=== PATIENT | male | born 1945 | race Caucasian/White ===

== ENCOUNTER 2017-05-06 09:25 | Emergency (ER) | payer OTHER, MEDICARE ==
[2017-05-06 09:47] VITALS: BP 133/55
--- NOTE | 2017-05-06 10:15 | ER Document Report ---
HPI - HPI Pain Level: Denies Notes: Patient is a 72-year-old male who presents the ED for removal of stitches status post laceration repair about 12 days ago. Patient states he has not had any difficulties with the sutures and his wound has healed without any complications. Patient has not noticed any redness, purulent discharge, abscess , red streaks, or discharge. No other concerns or complaints. Denies any fever. - ROS Notes: REVIEW OF SYSTEMS: CONSTITUTIONAL : Denies fever, chills, or sweats. Denies recent illness. EENT: Denies eye, ear, throat, or mouth pain or symptoms. Denies nasal or sinus congestion or discharge. Denies throat, tongue, or mouth swelling or difficulty swallowing. CARDIOVASCULAR: Denies chest pain. Denies palpitations or racing or irregular heart beat. Denies ankle edema. RESPIRATORY: Denies cough, cold, or chest congestion. Denies shortness of breath, difficulty breathing, or wheezing. GASTROINTESTINAL: Denies abdominal pain or distention. Denies nausea, vomiting , or diarrhea. Denies blood in vomitus, stools, or per rectum. Denies black, tarry stools. Denies constipation. GENITOURINARY: Denies difficulty urinating, painful urination, burning, frequency, blood in urine, or discharge. MUSCULOSKELETAL: Denies back or neck pain or stiffness. Denies joint pain or swelling. SKIN: see hpi NEUROLOGICAL: Denies confusion or altered mental status. Denies passing out or loss of consciousness. Denies dizziness or lightheadedness. Denies headache. Denies weakness or paralysis or loss of use of either side. Denies problems with gait or speech. Denies sensory loss, numbness, or tingling. ALL OTHER SYSTEMS REVIEWED AND NEGATIVE. Dictation was performed using [employer] recognition software - DERM Skin Color: Normal Past Medical History - Social History Smoking Status: Current Every Day Smoker Frequency of alcohol use: Rare Family History: Reviewed & Not Pertinent Patient has suicidal ideation: No Patient has homicidal ideation: No Endocrine Medical History: Reports: Hx Diabetes Mellitus Type 2 Renal/ Medical History: Denies: Hx Peritoneal Dialysis - Immunizations Hx Diphtheria, Pertussis, Tetanus Vaccination: Yes Vertical Provider Document - CONSTITUTIONAL Agree With Documented VS: Yes Notes: PHYSICAL EXAMINATION: GENERAL: Well-appearing, well-nourished and in no acute distress. LUNGS: Breath sounds clear to auscultation bilaterally and equal. No wheezes rales or rhonchi. HEART: Regular rate and rhythm without murmurs, rubs, gallops. ABDOMEN: Soft, nontender, nondistended abdomen. No guarding, no rebound. No masses appreciated. Normal bowel sounds present. No CVA tenderness bilaterally. Musculoskeletal: Lt hand: FROM to passive/active. Strength 5+/5. PSYCH: Normal mood, normal affect. SKIN: [address] to left hand. No wound dehiscense, erythema, warmth, abscess, streaks, or discharge. Non-tender. - INFECTION CONTROL TRAVEL OUTSIDE OF THE [place] IN LAST 30 DAYS: No - RESPIRATORY O2 Sat by Pulse Oximetry: 98 Course - Re-evaluation Re-evalutation: 05/06/17 10:23 Patient is an afebrile, well-hydrated, 72-year-old male since the ED for suture removal to the left hand. Sutures were removed successfully without any complications. There is no evidence of wound dehiscence or infection at this time. Conservative measures for symptoms. Recheck with your PCM later this week if needed. Return to the ED with any worsening/concerning symptoms otherwise as reviewed discharge. Patient is in agreement. - Vital Signs Vital signs: Temp Pulse Resp BP Pulse Ox 97.9 F 72 18 133/55 H 98 05/06/17 09:45 05/06/17 09:45 05/06/17 09:45 05/06/17 09:45 05/06/17 09:45 Discharge - Discharge Clinical Impression: Visit for suture removal Condition: Stable Disposition: HOME, SELF-CARE Instructions: Suture Removal Additional Instructions: Keep the skin clean Wash with soap and water Monitor for any signs of infection Recheck with your PCM in 3-5 days Return to the ED with any worsening symptoms and/or development of fever, headache, chest pain, palpitations, syncope, shortness of breath, trouble breathing, abdominal pain, n/v/d, muscle weakness/paralysis, numbness/tingling, abscess, wound dehiscence, red streaks, purulent discharge, or other worsening symptoms that are concerning to you. Forms: Elevated Blood Pressure Referrals: [facility] [Provider Group] - Follow up as needed [facility] [Provider Group] - Follow up as needed
== END 2017-05-06 10:28 | disposition home or self-care (01) ==
LOC: ER 09:25
DX: S61.412D Laceration without foreign body of left hand, subsequent encounter (principal); X58.XXXD Exposure to other specified factors, subsequent encounter

== ENCOUNTER 2019-12-02 23:08 | Emergency (ER) | payer OTHER, MEDICARE ==
[2019-12-03] MEDS ORDERED: ONDANSETRON 4 MG TAB.RAPDIS PO ONE (00:15)
[2019-12-03] MEDS ORDERED: OXYCODONE-ACETAMINOPHEN 5-325 MG TABLET PO ONE (00:15)
--- NOTE | 2019-12-03 00:18 | ER Document Report ---
ED General - General Chief Complaint: Arm Injury Stated Complaint: ARM DEFORMITY Primary Care Provider: KIM DENT MD [Primary Care Provider] - Follow up as needed Notes: Patient is a 74-year-old white male with past medical history of leukemia in remission, diabetes and chronic left sciatica who presents to the emergency department the chief complaint of left arm pain after a fall at 10:30 PM. The patient reports he was walking up some steps, has sciatica of the left leg which caused him to trip falling forward landing on the left arm. Per EMS obvious deformity. He was placed in a immobilizing splint by EMS. He denies any numb ness, tingling or weakness. Admits to pain in the left upper arm. No head injury or loss of consciousness. TRAVEL OUTSIDE OF THE [place] IN LAST 30 DAYS: No - Related Data Allergies/Adverse Reactions: No Known Allergies Allergy (Verified 05/06/17 10:07) Past Medical History - Social History Smoking Status: Unknown if Ever Smoked Family History: Reviewed & Not Pertinent Endocrine Medical History: Reports: Hx Diabetes Mellitus Type 2 Renal/ Medical History: Denies: Hx Peritoneal Dialysis - Immunizations Hx Diphtheria, Pertussis, Tetanus Vaccination: Yes Review of Systems - Review of Systems Musculoskeletal: Other - Arm pain Skin: No symptoms reported Neurological/Psychological: No symptoms reported Physical Exam - Vital signs Vitals: Temp 98.2 F 12/02/19 23:08 - General General appearance: Appears well, Alert - Respiratory Respiratory status: No respiratory distress Chest status: Nontender Breath sounds: Normal Chest palpation: Normal - Cardiovascular Rhythm: Regular Heart sounds: Normal auscultation - Extremities General upper extremity: Other - Left arm held in full elbow extension by EMS splint. There is ecchymosis to the lateral left humeral region and lateral left elbow and forearm. Tenderness over the mid left upper arm. The left forearm tissues are compressible. There is 2+ radial on the left. Foreign [employer] T[employer] Trader strength is 3 out of 5 on the left as compared with the right. - Neurological Neuro grossly intact: Yes Cognition: Normal Orientation: AAOx4 - Psychological Associated symptoms: Normal affect, Normal mood - Skin Skin Temperature: Warm Skin Moisture: Dry Skin Color: Other - Normal except area described above Course - Re-evaluation Re-evalutation: 12/03/19 00:[address] Coleman who also reviewed the x-ray and recommended orthopedic consult. I called and spoke with Dr. Henry who agreed that the area of fracture does display a suspicious bony demineralization possibly revealing an underlying pathologic fracture. The patient has a close relationship with an oncologist that he sees from time to time given his history of leukemia A, Dr. Herlinda Apple 12/03/19 01:[address] Apple first thing tomorrow morning for outpatient investigation and work-up. Dr. Henry advised to be happy to see the patient in the event there is any prolonged nature to the patient's ability to see the oncologist. He will be given a short course of pain medications as well as both Dr. Henry's information and he has Dr. Apple. He requested his nightly dose of Lantus 25 subcu. He will be placed in a posterior long-arm splint and sling per Ortho. 12/03/19 02:30 Arm neurovascularly intact status post as evaluated by me. Discussed with patient signs and symptoms of possible compression syndrome distal to the affected area. Verbalized understood and agreed. Counseled him regarding the importance of outpatient follow-up tomorrow morning with the oncologist and with Ortho as needed. Advised to return here any ER immediately with any new, persistent or worsening symptoms. He verbalized understood and agreed. - Vital Signs Vital signs: Temp Pulse Resp BP Pulse Ox 98.2 F 12/02/19 23:08 - Laboratory Laboratory results interpreted by me: 12/03/19 01:28 POC Glucose 211 H Discharge - Discharge Clinical Impression: Humeral fracture Qualifiers: Encounter type: initial encounter Humerus Location: distal Fracture type: closed Fracture morphology: unspecified fracture morphology Laterality: left Qualified Code(s): S42.402A - Unspecified fracture of lower end of left humerus, initial encounter for closed fracture Pathologic fracture Qualifiers: Pathology associated with fracture: unspecified disease Site of pathological fracture: humerus Encounter type: initial encounter Laterality: left Qualified Code(s): M84.422A - Pathological fracture, left humerus, initial encounter for fracture Condition: Stable Disposition: HOME, SELF-CARE Instructions: Fracture Proximal Humerus Additional Instructions: Please call your oncologist first thing in the morning, Dr. Apple for urgent outpatient evaluation of possible pathologic fracture to the left humerus given the changes to the bone seen on x-ray. If there is any prolongation of time between now and evaluation by your oncologist please call Dr. Henry, the orthopedist that also evaluated your x-ray and was involved in your care here today. Please return here or any ER immediately with any new, persistent or worsening symptoms. Prescriptions: Hydrocodone/Acetaminophen [Butler 10-325 Tablet] 1 each PO Q6 PRN #12 tablet PRN Reason: Ondansetron [Zofran Odt 4 mg Tablet] 4 mg PO Q8 PRN #15 tab.rapdis PRN Reason: Referrals: KIM DENT MD [Primary Care Provider] - Follow up as needed MARLENE HENRY JR, DO [ACTIVE PROVISIONAL STAFF] - Follow up as needed
--- NOTE | 2019-12-03 00:26 | RADIOLOGY REPORT (SQ) ---
EXAM DESCRIPTION: XR FOREARM 2 VIEWS COMPLETED DATE/TME: 12/02/2019 23:31 CLINICAL HISTORY: 74 years, Male, fall with injury to left arm COMPARISON: None. NUMBER OF VIEWS: 2 TECHNIQUE: 2 views of the left forearm LIMITATIONS: None. FINDINGS: Partial visualization of a displaced fracture of the distal humeral diaphysis. Artifact overlies the forearm. Questionable nondisplaced ulnar styloid fracture. Soft tissue swelling. The elbow joint appears grossly intact. IMPRESSION: Partially visualized distal humeral fracture deformity. Questionable nondisplaced ulnar styloid fracture. Soft tissue swelling.. copyright 2010 [employer]- All Rights Reserved
--- NOTE | 2019-12-03 00:30 | RADIOLOGY REPORT (SQ) ---
EXAM DESCRIPTION: XR HUMERUS COMPLETED DATE/TME: 12/02/2019 23:31 CLINICAL HISTORY: 74 years, Male, fall with injury to left arm COMPARISON: None. NUMBER OF VIEWS: 2 TECHNIQUE: 2 view left humerus LIMITATIONS: None. FINDINGS: There is a displaced fracture of the distal humeral diaphysis. Lateral angulation of the distal fracture fragment. Comminuted appearance to the fracture. There is an underlying, moth-eaten appearance to the humerus at the fracture site, and pathologic fracture is considered. Correlate with any cancer history. There is underlying osteopenia. The shoulder and elbow joints appear intact IMPRESSION: Comminuted displaced and angulated distal humeral diaphyseal fracture. Moth-eaten appearance of the underlying humerus may reflect pathologic fracture deformity. copyright 2010 [email or web address]- All Rights Reserved
[2019-12-03] MEDS ORDERED: INSULIN GLARGINE,HUM.REC.ANLOG 1,000 UNIT/10 ML VIAL SUBCUT ONE (01:14)
[2019-12-03 02:48] VITALS: BP 124/48
== END 2019-12-03 03:15 | disposition home or self-care (01) ==
LOC: ER 23:08
PROC: 2W39X1Z Immobilization of Left Upper Extremity using Splint (ICD-10-PCS; principal; 2019-12-02)
DX: S42.402A Unspecified fracture of lower end of left humerus, initial encounter for closed fracture (principal); M79.602 Pain in left arm; W10.9XXA Fall (on) (from) unspecified stairs and steps, initial encounter; E11.9 Type 2 diabetes mellitus without complications; C95.91 Leukemia, unspecified, in remission
CPT/HCPCS: 99283; 82962; 73090; 73060; 29105; J1815; S0119

== ENCOUNTER 2019-12-15 10:45 | Emergency (ER) | payer OTHER, MEDICARE ==
[2019-12-15 10:53] VITALS: BP 130/58
--- NOTE | 2019-12-15 11:15 | ER Document Report ---
ED Medical Screen (RME) - General Chief Complaint: Weakness Stated Complaint: WEAKNESS, CAN'T STAND Time Seen by Provider: 12/15/19 11:14 Primary Care Provider: KIM DENT MD [Primary Care Provider] - Follow up as needed Notes: Patient was referred here from Dr. Wong's office. He has bone metastasis he fell couple weeks ago fracturing his left shoulder he does have an oncology follow-up with [facility] have progressive weakness and ability to stand take some steps pivot family is having a very difficult time taking care of him patient is really not want much performed however he did agree to at least get a urine obtained to be sure that we do not have some infection brewing. TRAVEL OUTSIDE OF THE [place] IN LAST 30 DAYS: No - Related Data Allergies/Adverse Reactions: No Known Allergies Allergy (Verified 05/06/17 10:07) Past Medical History Endocrine Medical History: Reports: Hx Diabetes Mellitus Type 2 Renal/ Medical History: Denies: Hx Peritoneal Dialysis - Immunizations Hx Diphtheria, Pertussis, Tetanus Vaccination: Yes Physical Exam - Vital signs Vitals: Temp Pulse Resp BP Pulse Ox 98.6 F 115 H 18 130/58 H 100 12/15/19 10:52 12/15/19 10:52 12/15/19 10:52 12/15/19 10:52 12/15/19 10:52 Course - Vital Signs Vital signs: Temp Pulse Resp BP Pulse Ox 98.6 F 115 H 18 130/58 H 100 12/15/19 10:52 12/15/19 10:52 12/15/19 10:52 12/15/19 10:52 12/15/19 10:52 Doctor's Discharge - Discharge Referrals: KIM DENT MD [Primary Care Provider] - Follow up as needed
[2019-12-15 12:42] LABS: HEMATOCRIT 33.2 % (37.9-51.0); HEMOGLOBIN 11.3 g/dL (13.5-17.0); MEAN CORPUSCULAR HEMOGLOBIN 33.5 pg (27.0-33.4); MEAN CORPUSCULAR HGB CONC 34.1 g/dL (32.0-36.0); MEAN CORPUSCULAR VOLUME 98 fl (80-97); PLATELET COUNT 487 10^3/uL (150-450); RED BLOOD COUNT 3.38 10^6/uL (4.35-5.55); RED CELL DISTRIBUTION WIDTH 14.7 % (11.5-14.0)
[2019-12-15 12:48] LABS: APPEARANCE,URINE CLEAR; BILIRUBIN,URINE NEGATIVE (NEGATIVE); COLOR,URINE YELLOW; GLUCOSE, URINE NEGATIVE (NEGATIVE); KETONES,URINE TRACE mg/dL (NEGATIVE); LEUKOCYTE ESTERASE,URINE NEGATIVE (NEGATIVE); NITRITE,URINE NEGATIVE (NEGATIVE); PROTEIN,URINE NEGATIVE (NEGATIVE); URIC ACID CRYSTALS,URINE RARE /HPF; URINE SPECIFIC GRAVITY 1.015; UROBILINOGEN,URINE NEGATIVE mg/dL (<2.0)
[2019-12-15 13:03] LABS: ALBUMIN 3.6 g/dL (3.5-5.0); ALKALINE PHOSPHATASE 117 U/L (38-126); ANION GAP 7 (5-19); ASPARTATE AMINO TRANSFERASE 37 U/L (17-59); BILIRUBIN,TOTAL 0.5 mg/dL (0.2-1.3); BLOOD UREA NITROGEN 47 mg/dL (7-20); CALCIUM 11.1 mg/dL (8.4-10.2); CARBON DIOXIDE 27 mmol/L (22-30); CHLORIDE 99 mmol/L (98-107); GLUCOSE 149 mg/dL (75-110); POTASSIUM 4.5 mmol/L (3.6-5.0); TOTAL PROTEIN 6.5 g/dL (6.3-8.2)
[2019-12-15 13:10] LABS: WHITE BLOOD COUNT 34.1 10^3/uL (4.0-10.5)
[2019-12-15 13:12] LABS: ABSOLUTE LYMPHOCYTES# (MANUAL) 9.9 10^3/uL (0.5-4.7); ABSOLUTE MONOCYTES # (MANUAL) 1.7 10^3/uL (0.1-1.4); ANISOCYTOSIS SLIGHT; BAND NEUTROPHILS % (MANUAL) 1 % (3-5); BASOPHILS % (MANUAL) 0 % (0-2); EOSINOPHILS % (MANUAL) 0 % (0-6); LYMPHOCYTES % (MANUAL) 29 % (13-45); MONOCYTES % (MANUAL) 5 % (3-13); PLATELET COMMENT INCREASED; SEGMENTED NEUTROPHILS % (MAN) 65 % (42-78); TOTAL CELLS COUNTED 100
--- NOTE | 2019-12-15 14:28 | ER Document Report ---
ED General - General Chief Complaint: General Weakness Stated Complaint: WEAKNESS, CAN'T STAND Time Seen by Provider: 12/15/19 11:14 Primary Care Provider: KIM DENT MD [Primary Care Provider] - Follow up as needed Mode of Arrival: Wheelchair Information source: Patient, Relative TRAVEL OUTSIDE OF THE [place] IN LAST 30 DAYS: No - HPI Onset/Duration: Gradual Quality of pain: Achy Severity: Moderate Pain Level: 3 Associated symptoms: Weakness, Other - chronic back pain, new pain in left broken shoulder Exacerbated by: Standing, Movement Relieved by: Remaining still Similar symptoms previously: No Recently seen / treated by doctor: No Notes: 74 year old male with a history of CLL (followed at [facility] for Oncology Care), Diabetes, Chronic Back Pain who recently fell and broke his left humerus (due to a pathologic fracture) here in the ER for generalized weakness. The patient followed up with Dr. Henry of Orthopedics and he has since referred to the patient to [facility] Orthopedic Oncology (patient has an appointment this Saturday). The patient denies any recent fevers, chills, sweats, urinary symptoms, cough, congestion, sore throat runny nose. The patient has become very weak over the last several days and his pain is also limiting his mobility. The patient's is with him and she tells me she is having trouble caring for the patient alone at this point. - Related Data Allergies/Adverse Reactions: No Known Allergies Allergy (Verified 05/06/17 10:07) Past Medical History - General Information source: Patient, Relative - Social History Smoking Status: Current Every Day Smoker Frequency of alcohol use: Occasional Drug Abuse: None Lives with: Spouse/Significant other Family History: Reviewed & Not Pertinent Patient has suicidal ideation: No Patient has homicidal ideation: No Endocrine Medical History: Reports: Hx Diabetes Mellitus Type 2 Renal/ Medical History: Denies: Hx Peritoneal Dialysis Malignancy Medical History: Reports Hx Leukemia - Immunizations Hx Diphtheria, Pertussis, Tetanus Vaccination: Yes Review of Systems - Review of Systems Constitutional: Weakness EENT: No symptoms reported Cardiovascular: No symptoms reported Respiratory: No symptoms reported Gastrointestinal: No symptoms reported Genitourinary: No symptoms reported Male Genitourinary: No symptoms reported Musculoskeletal: Back pain - with sciatica, Other - left upper arm pain from known fracture, chronic leg pains Skin: No symptoms reported Hematologic/Lymphatic: No symptoms reported Neurological/Psychological: No symptoms reported -: Yes All other systems reviewed and negative Physical Exam - Vital signs Vitals: Temp Pulse Resp BP Pulse Ox 98.6 F 115 H 18 130/58 H 100 12/15/19 10:52 12/15/19 10:52 12/15/19 10:52 12/15/19 10:52 12/15/19 10:52 - Notes Notes: GENERAL: Appears chronically ill, Well-appearing, well-nourished and in no acute distress. HEAD: Atraumatic, normocephalic. EYES: Pupils equal round and reactive to light, extraocular movements intact, sclera anicteric, conjunctiva are normal. ENT: External ears normal, nares patent, oropharynx clear without exudates. Moist mucous membranes. NECK: Normal range of motion, supple without lymphadenopathy or JVD. LUNGS: Breath sounds clear to auscultation bilaterally and equal. No wheezes rales or rhonchi. HEART: Regular rate and rhythm without murmurs, rubs or gallops. ABDOMEN: Soft, nontender, normoactive bowel sounds. No guarding, no rebound. No masses appreciated. EXTREMITIES: Normal range of motion, no pitting or edema. No clubbing or cyanosis. NEUROLOGICAL: Cranial nerves II through XII grossly intact. Normal speech, normal gait. PSYCH: Normal mood, normal affect. SKIN: Warm, Dry, normal turgor, no rashes or lesions noted. Course - Re-evaluation Re-evalutation: 12/15/19 15:21 The patient is here in the ER for generalized weakness. He is known CLL which is being managed at [facility]. I called [facility] to go over his lab work from today (patient's WBC is 34 and his BUN is 47) and the Oncology Fellow long haul truck driver said his WBC was 29 and his BUN was 13 back in August). Oncology at [facility] has no specific recommendations regarding his CLL at this time since he is stage 0 and simply being observed. Plan will therefore be to hydrate the patient (he seems slightly dehydrated clinically and based on his labs), treat his pain from his humerus fracture (IV morphine), and have case management get involved since the patient's is having trouble caring for him. Patient will still need to follow up with [facility] Orthopedic Oncology as scheduled this Saturday. - Vital Signs Vital signs: Temp Pulse Resp BP Pulse Ox 98.6 F 115 H 18 130/58 H 100 12/15/19 10:52 12/15/19 10:52 12/15/19 10:52 12/15/19 10:52 12/15/19 10:52 - Laboratory Result Diagrams: 12/15/19 11:25 12/15/19 11:25 Laboratory results interpreted by me: 12/15/19 12/15/19 12/15/19 11:25 11:25 11:25 WBC 34.1 H* RBC 3.38 L Hgb 11.3 L Hct 33.2 L MCV 98 H MCH 33.5 H RDW 14.7 H Plt Count 487 H Band Neutrophils % 1 L Abs Neuts (Manual) 22.5 H Abs Lymphs (Manual) 9.9 H Abs Monocytes (Manual) 1.7 H Sodium 133.3 L BUN 47 H Glucose 149 H Calcium 11.1 H Urine Ketones TRACE H Discharge - Discharge Clinical Impression: Dehydration Condition: Stable Disposition: HOME, SELF-CARE Instructions: Dehydration ([facility]), Fracture Proximal Humerus Additional Instructions: Follow up with [facility] Orthopedics as scheduled this Saturday. Also follow up with your primary care doctor and your Oncologist. Work with Case Management and your primary care doctor to establish home health services. Use your previously prescribed pain medications along with tylenol and motrin for pain. Referrals: KIM DENT MD [Primary Care Provider] - Follow up as needed
[2019-12-15] MEDS ORDERED: NORMAL SALINE 1000 ML 1,000 ML IV ONE (14:32)
[2019-12-15] MEDS ORDERED: MORPHINE SULFATE 10 MG/ML INJ IV ONE (15:11)
[2019-12-16 14:33] LABS: PATH REVIEW PATHOLOGIST REVIEWED
== END 2019-12-15 17:53 | disposition home or self-care (01) ==
LOC: ER 10:45
DX: E86.0 Dehydration (principal); R53.1 Weakness; M54.9 Dorsalgia, unspecified; G89.29 Other chronic pain; S42.302D Unspecified fracture of shaft of humerus, left arm, subsequent encounter for fracture with routine healing; W19.XXXD Unspecified fall, subsequent encounter; F17.200 Nicotine dependence, unspecified, uncomplicated; Z85.6 Personal history of leukemia
CPT/HCPCS: 99284; 96361; 96374; 36415; 85025; 80053; 81001; J2270; J7030

== ENCOUNTER → 2019-12-16 | Outpatient (CLI) | payer MEDICARE, OTHER ==
--- NOTE | 2019-12-16 15:25 | RADIOLOGY REPORT (SQ) ---
EXAM DESCRIPTION: CT CHEST WITH; CT ABD/PELVIS WITH IV ORAL IMAGES COMPLETED DATE/TIME: 12/16/2019 1:35 pm REASON FOR STUDY: M84.422A PATHOLOGICAL FRACTURE, LEFT HUMERUS, INIT FOR FX, Z85.46 PERSONAL M84.422 A PATHOLOGICAL FRACTURE, LEFT HUMERUS, INIT FOR FX Z85.46 PERSONAL HISTORY OF MALIGNANT NEOPLASM OF PROSTATE Z85.6 PERSONAL HISTORY OF LEUKEMIA COMPARISON: None. CONTRAST TYPE AND DOSE: 89 mL Omnipaque 350- low osmolar. RENAL FUNCTION: BUN 47; creatinine 1.00 TECHNIQUE: CT scan of the chest performed using helical scanning technique with dynamic intravenous contrast injection. Images reviewed with lung, soft tissue and bone windows. Reconstructed coronal a nd sagittal MPR images reviewed. All images stored on PACS. CT scan of the abdomen and pelvis performed with intravenous and with oral contrastusing helical scan kana technique with dynamic intravenous contrast injection. Images reviewed with lung, soft tissue a nd bone windows. Reconstructed coronal and sagittal MPR images reviewed. Delayed images for evaluat ion of the urinary system also acquired and evaluated. All images stored on PACS. All CT scanners at this facility use dose modulation, iterative reconstruction, and/or weight based d osing when appropriate to reduce radiation dose to as low as reasonably achievable (ALARA). [facility]: Dose Right [facility]: CareDose [facility]: Dose Right [facility]: Teradose 4D [facility]: Smart [employer] RADIATION DOSE: CT Rad equipment meets quality standard of care and radiation dose reduction techniq ues were employed. CTDIvol: 12.1 - 16.0 mGy. DLP: 3102 mGy-cm. . LIMITATIONS: None. FINDINGS: CHEST: LUNGS AND PLEURA: There is a seen 4.4 x 4.5 x 5.7 cm right suprahilar parenchymal mass demonstrating internal gas. Multiple smaller nodular densities are seen predominantly in subpleural positions thro ughout the lungs. No pleural effusion. No pneumothorax. HILAR AND MEDIASTINAL STRUCTURES: Pretracheal lymph node measures up to 1.2 cm in the short axis. No mediastinal masses. HEART AND VASCULAR STRUCTURES: No aneurysm or dissection. No central pulmonary emboli. No pericardi al effusion. HARDWARE: None. THYROID AND OTHER SOFT TISSUES: No masses. No adenopathy. BONES: No suspicious lytic or blastic osseous lesions. OTHER: Incidental note is made of symmetric bilateral gynecomastia. ABDOMEN AND PELVIS: LIVER: Diminutive, demonstrating nodular contours and course and attenuation, consistent with cirrhos is. Incidental note is made of a simple cyst within the right hepatic lobe. No mass. SPLEEN: Normal size. No focal lesions. PANCREAS: No masses. No significant calcifications. No adjacent inflammation or peripancreatic fluid collections. Pancreatic duct not dilated. GALLBLADDER: No identified stones by CT criteria. No inflammatory changes to suggest cholecystitis. ADRENAL GLANDS: There is NA 4.5 x 3.3 x 4.9 cm mass involving the body of the left adrenal gland. Th is right adrenal gland is normal in appearance. RIGHT KIDNEY AND URETER: No solid masses. No significant calcification. No hydronephrosis or hydroure ter. LEFT KIDNEY AND URETER: No solid masses. Incidental note is made of a 4.6 cm simple cyst. A subcent imeter similar appearing structure is too small to definitively characterize, but likely represents a simple cyst as well. No significant calcification. No hydronephrosis or hydroureter. AORTA AND VESSELS: No aneurysm. No dissection. Atherosclerotic plaque to include the origins of the major visceral branches. RETROPERITONEUM: There is a nodular retroperitoneal density at the level of the right kidney (series 3, image 33). This measures on the order of 1.6 x 2.1 x 1.9 cm. BOWEL AND PERITONEAL CAVITY: No masses or inflammatory changes. No free fluid or peritoneal masses. APPENDIX: Not visualized. ABDOMINAL WALL: Small fat containing left inguinal hernia. PELVIS: Treatment changes are seen of the prostate gland. The bladder is normal in appearance. BONES: A 5 mm sclerotic focus seen within the L1 vertebral body is nonspecific, and may represent a s imple benign enostosis. Subcortical sclerosis seen within the weight-bearing aspect of the right fem oral head suggests avascular necrosis. Degenerative changes are seen of the hips and spine. OTHER: Within the right paraspinous musculature just cranial to the sacrum, there is a 5.3 x 6.3 x 9. 3 cm homogeneously hypoattenuating mass demonstrating Hounsfield units consistent with simple fluid. Within the left gluteal musculature there is a 5.9 x 8.4 x 8.7 cm similar appearing collection. Few smaller collections are seen adjacent to this finding. IMPRESSION: 4.4 x 4.5 x 5.5 cm right suprahilar cavitating parenchymal mass with multiple smaller rodriguez bpleural nodules seen throughout the lungs ; recommend tissue diagnosis and/or PET-CT imaging. A sin gle prominent pretracheal lymph node measures up to 1.2 cm in the short axis. Right retroperitoneal nodular density and left adrenal mass are nonspecific findings. Multiple muscu loskeletal masses which appear liquefactive centrally, possibly on the basis of necrotic metastases ; multiple abscesses may have a similar appearance. Posttreatment changes of the prostate gland. Cirrhotic appearing liver without mass. Sclerotic focu s within the L1 vertebral body likely represents a benign enostosis TECHNICAL DOCUMENTATION: JOB ID: [id number] Quality ID # [id number]: Final reports with documentation of one or more dose reduction techniques (e.g., Au tomated exposure control, adjustment of the mA and/or kV according to patient size, use of iterative reconstruction technique) 2010 [employer]- All Rights Reserved Reading location - IP/workstation name: [email or web address]
--- NOTE | 2019-12-16 17:00 | RADIOLOGY REPORT (SQ) ---
EXAM DESCRIPTION: NM WHOLE BODY BONE SCAN IMAGES COMPLETED DATE/TIME: 12/16/2019 3:03 pm REASON FOR STUDY: M84.422A PATHOLOGICAL FRACTURE, LEFT HUMERUS, INIT FOR FX, Z85.46 PERSONAL M84.422 A PATHOLOGICAL FRACTURE, LEFT HUMERUS, INIT FOR FX Z85.46 PERSONAL HISTORY OF MALIGNANT NEOPLASM OF PROSTATE Z85.6 PERSONAL HISTORY OF LEUKEMIA COMPARISON: 12/16/2019 and 12/02/2019 RADIONUCLIDE AND DOSE: 20.99 millicuries Tc99m MDP. The route of agent administration: Intravenous. ADDITIONAL DRUGS AND DOSES: None. TECHNIQUE: Routine delayed images at 1 hour post radionuclide injection acquired of the bony skeleto n including anterior and posterior whole-body projections and additional focused images as needed. LIMITATIONS: None. FINDINGS: BONES: Increased radiopharmaceutical uptake is seen within the left humerus at the site of a known pathologic fracture. In other focus of increased radiotracer uptake is seen involving the r ight 8th rib costochondral junction may represent a costochondral junction injury. Retrospective bhakti luation of comparison CT reveals no discrete abnormality at this site. There is an additional focus of increased radiotracer activity involving the proximal left femur ; this is not included in the myke ged field of view on CT imaging. KIDNEYS: Symmetric excretion without obstruction. Incidental note is again made of a left renal cyst . OTHER: No other significant finding. IMPRESSION: Increased radiotracer activity is seen at the site of a known pathologic fracture involv ing the left humerus. A focus of intense uptake seen at the right 8th rib costochondral junction may be posttraumatic. Increased radiotracer activity seen within the left proximal femur likely represe nts a metastatic focus. COMMENT: Quality measure 147: Current bone scan is compared with any available plain radiographs, p rior bone scans, and CT/MRI. TECHNICAL DOCUMENTATION: JOB ID: [id number] 2010 [employer]- All Rights Reserved Reading location - IP/workstation name: [email or web address]
== END ==
LOC: RAD 10:34
PROVIDERS: ATTEND Orthopaedic Surgery
DX: M84.422A Pathological fracture, left humerus, initial encounter for fracture (principal); Z85.46 Personal history of malignant neoplasm of prostate; Z85.6 Personal history of leukemia; R10.9 Unspecified abdominal pain
CPT/HCPCS: 78306; 71260; 74177; A9503; Q9969